=== PATIENT | female | born 1935 | race Caucasian/White ===

== ENCOUNTER 2018-04-01 08:08 | Emergency (ER) | payer MEDICARE ==
[2018-04-01] MEDS ORDERED: Adacel (T-DAP) 0.5 ML VIAL ONE (08:55)
[2018-04-01] MEDS ORDERED: diphenhydrAMINE 25 MG CAP ONE (08:55)
== END 2018-04-01 09:50 | disposition home or self-care (01) ==
LOC: ERS 08:08
DX: S00.81XA Abrasion of other part of head, initial encounter (principal); S20.319A Abrasion of unspecified front wall of thorax, initial encounter; S30.810A Abrasion of lower back and pelvis, initial encounter; Z23 Encounter for immunization; Z79.899 Other long term (current) drug therapy; X58.XXXA Exposure to other specified factors, initial encounter
CPT/HCPCS: 90471; 90715

== ENCOUNTER 2019-01-16 08:46 | Observation (INO) | payer MEDICARE ==
[2019-01-16 09:52] LABS: ALT (SGPT) 9 U/L (8-55); AST (SGOT) 16 U/L (5-34); Albumin 4.3 g/dL (3.4-4.8); Alkaline Phosphatase 52 U/L (40-150); Anion Gap 11 mmol/L (10-20); BUN (Urea Nitrogen) 17 mg/dL (9.8-20.1); Bilirubin, Total 1.1 mg/dL (0.2-1.2); Calc. Creatinine Clearance 0 mL/min (70-130); Calcium 9.9 mg/dL (7.8-10.44); Carbon Dioxide 25 mmol/L (23-31); Chloride 107 mmol/L (98-107); Estimated GFR-MDRD 62; Globulin 2.7 g/dL (2.4-3.5); Glucose 98 mg/dL (83-110); Sodium 139 mmol/L (136-145)
[2019-01-16 09:56] LABS: #Eosinphils 0.1 thou/uL (0.0-0.7); #Lymphocytes 1.7 thou/uL (1.20-3.40); #Monocytes 0.5 thou/uL (0.11-0.59); #Neutrophils 4.1 thou/uL (1.40-6.50); %Basophils 0.3 % (0.0-1.0); %Eosinophils 1.6 % (0.0-10.0); %Lymphocytes 26.1 % (21.0-51.0); %Monocytes 7.7 % (0.0-10.0); %Neutrophils 64.3 % (42.0-75.0); Hemoglobin 13.4 g/dL (12.0-16.0); MDiff Complete? YES; Mean Corpuscular HGB CONC 32.8 g/dL (32.0-36.0); Mean Corpuscular Volume 88.6 fL (78.0-98.0); Mean Platelet Volume 9.5 fL (7.4-10.4); Ovalocytes SLIGHT = 2-5 cells (100X) (0-1/hpf); Platelet Count 110 thou/uL (130-400); Platelet Morphology Comment Appears Decreased; Polychromasia SLIGHT = 2-3 cells (100X) (0-2/hpf); RBC Distribution Width 12.5 % (11.5-14.5); Red Blood Cell (RBC) Count 4.61 mill/uL (4.20-5.40); White Blood Cell (WBC) Count 6.4 thou/uL (4.8-10.8)
[2019-01-16] MEDS ORDERED: Ondansetron PF 4 MG/2 ML Vial ONE (10:21)
[2019-01-16] MEDS ORDERED: Morphine 4 MG/ML VIAL ONE (10:21)
[2019-01-16] MEDS ORDERED: Nitroglycerin 2% Ointment 1 INCH/1 GM Packet ONE (11:27)
[2019-01-16] MEDS ORDERED: Aspirin Chewable 81 MG TAB ONE (11:27)
[2019-01-16 12:21] LABS: Acetaminophen Less than 6.0 mcg/mL (10.0-30.0); Alcohol Less than 10 mg/dL (Less than 10); Salicylate Less than 8.0 mg/dL (15.0-30.0)
[2019-01-16 13:05] LABS: Bilirubin Negative (Negative); Blood, Urine Negative (Negative); Clarity CLEAR (Clear); Glucose, Urine (Dipstick) Negative (Negative); Leukocyte Negative (Negative); Nitrite Negative (Negative); Protein, Urine (Dipstick) Negative (Neg-Trace); Urobilinogen 0.2 mg/dL (0.2-1.0)
[2019-01-16 13:15] LABS: Amphetamine Not Detected (NotDetected); Barbiturates Screen Not Detected (NotDetected); Benzodiazepine Screen Not Detected (NotDetected); Cocaine Metabolite Screen Not Detected (NotDetected); Medtox Control Line Valid? VALID (VALID); Medtox Reader # READER 1; Methadone Not Detected (NotDetected); Methamphetamine Not Detected (NotDetected); Opiate Screen Not Detected (NotDetected); Oxycodone Screen Not Detected (NotDetected); Phencyclidine (PCP) Not Detected (NotDetected); THC/Cannabinoid Screen Not Detected (NotDetected); Tricyclic Screen Not Detected (NotDetected)
[2019-01-16] MEDS ORDERED: hydrALAZINE 20 MG/ML VIAL SLOW IVP PRN (13:31)
[2019-01-16 15:11] VITALS: BMI 27.6
[2019-01-17] MEDS: Acetaminophen 325 MG TAB PO PRN ×2 (05:45→22:09)
[2019-01-17 06:57] LABS: #Eosinphils 0.1 thou/uL (0.0-0.7); #Lymphocytes 1.7 thou/uL (1.20-3.40); #Monocytes 0.6 thou/uL (0.11-0.59); %Basophils 0.6 % (0.0-1.0); %Eosinophils 1.5 % (0.0-10.0); %Lymphocytes 31.2 % (21.0-51.0); %Monocytes 10.4 % (0.0-10.0); %Neutrophils 56.3 % (42.0-75.0); Hemoglobin 12.4 g/dL (12.0-16.0); Mean Corpuscular HGB CONC 32.2 g/dL (32.0-36.0); Mean Corpuscular Volume 89.9 fL (78.0-98.0); Mean Platelet Volume 9.7 fL (7.4-10.4); Platelet Count 90 thou/uL (130-400); RBC Distribution Width 12.5 % (11.5-14.5); Red Blood Cell (RBC) Count 4.29 mill/uL (4.20-5.40); White Blood Cell (WBC) Count 5.3 thou/uL (4.8-10.8)
[2019-01-17 07:17] LABS: Anion Gap 9 mmol/L (10-20); BUN (Urea Nitrogen) 16 mg/dL (9.8-20.1); Calc. Creatinine Clearance 59 mL/min (70-130); Calcium 9.4 mg/dL (7.8-10.44); Carbon Dioxide 29 mmol/L (23-31); Chloride 105 mmol/L (98-107); Estimated GFR-MDRD 59; Glucose 93 mg/dL (83-110); Potassium 4.4 mmol/L (3.5-5.1); Sodium 139 mmol/L (136-145)
[2019-01-17] MEDS ORDERED: Lisinopril 5 MG TAB PO SCH ×2 (09:00→18:45)
[2019-01-17 10:38] LABS: Troponin I Less than 0.010 ng/mL (< 0.028)
--- NOTE | 2019-01-17 12:53 | HP ---
CHIEF COMPLAINT: Infection on the leg. HISTORY OF PRESENT ILLNESS: This patient is an 83-year-old female who presented via the emergency department. The patient's primary concern was a wound on her right leg. The ER physician got history from the patient that she had seen her PCP and had been on antibiotics, but had not improved. By my history, the patient reported that she was helping her son, who has some sort of handicap, move his belongings to her home and a bug bit her on the leg. She stated that she was never able to see the bug, but she could hear the bug. On my exam, the patient had a great deal of difficulty giving any detailed history and was very difficult to keep on task regarding her history. The only thing I could get for certain is that it was the reason that she had presented to the emergency department. REVIEW OF SYSTEMS: As best I could obtain, it was unremarkable otherwise. PAST MEDICAL HISTORY: Difficult to obtain as well. However, looking back to her records in the electronic record system, she does appear to have a history of schizophrenia, although she denied any other specific medical history. PAST SURGICAL HISTORY: She does have some history surgically the hysterectomy. FAMILY HISTORY: Nothing significant or at least obtained from conversation with the patient. ALLERGIES: PENICILLINS. HOME MEDICATIONS: Apparently, she takes some qofs-ogd-kairayq Claritin from time to time, but no prescription medications. PHYSICAL EXAMINATION: VITAL SIGNS: On arrival; BP was 194/84, pulse 72, respirations 18, temperature was 97 8.8, O2 saturation was 97% on room air. At the time of discharge in the ER, BP 149/78, pulse 57, respirations 18, temperature 98.7, O2 saturation was 98%. GENERAL APPEARANCE: The patient appeared in no distress. She was quite lively in fact. HEENT: PERRL. No OP lesions. NECK: Supple and symmetric. HEART: Had regular rate and rhythm with a split S2. LUNGS: Clear to auscultation bilaterally with good chest wall expansion and air exchange. Extremities: There is a lesion on the right lower leg with approximately 1 cm black scab at the center surrounded by about 2 cm radius halo of faint erythema. There is also a smaller similar lesion on the lateral mid calf on the left. There are multiple varicose veins noted and there is a surgical incision at the medial proximal left calf where the patient appears to have had a vein stripping done previously. NEURO: The patient moves all extremities spontaneously and tends to be borderline hypomanic. 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 She also inquired about the origin of my name and when told it dated back to the s, she stated that she loves those people and she hears from them all the time. When I initially walked into the room, the patient had her eyes closed and was talking as of having a conversation. When I made by presence known, she said " Oh, I was just talking to my preacher, you're my preacher aren't you?" IMAGING: EKG shows an incomplete left bundle-branch block with sinus bradycardia. LABORATORY DATA: White count 6.4, hemoglobin 13.4, platelets 110. Sedimentation rate was 8. Chemistries normal. CRP was 0.52. TSH 1.2. Urinalysis is negative. Drug screen positive for salicylates and acetaminophen. EMERGENCY ROOM COURSE: The patient received IV vancomycin, Zofran, morphine and Nitro-Bid as well as aspirin. IMPRESSION AND PLAN: 1. The patient appears to possibly be manic with flight of ideas and some potential delusions of grandeur, completely unclear what this patient's baseline mental status is or whether she has underlying dementia. She had no family available. I attempted to call the number in the records and it was a non-working number. The other number in the record was attempted and only got a voicemail. Discussed the case with the ED provider. Sound like [facility] might need to be involved. We will place the patient in observation or now and address her blood pressure and watch status stable. Consult [facility] for acute psychoses. 2. Stasis ulcer of the right lower extremity. Completely unclear whether the patient has actually been treated for this or not, it is certainly possible; if it is a stasis ulcer and is not going to improve with antibiotics. She had a basically normal sedimentation rate and CRP. She has a normal white count with no fever. We will ask the wound care team to evaluate her. 3. Hypertension. Again, no real baseline to go by. We will start 5 mg of lisinopril and give her p.r.n. Hydralazine. Job ID: [id number] EN
--- NOTE | 2019-01-17 20:09 | PRG ---
DATE OF SERVICE: 01/17/2019 SUBJECTIVE: Ms. Bobo is an 83-year-old female with past medical history significant for schizophrenia, who presented to the hospital with complaints of nonhealing right lower extremity ulcer. Upon evaluation of the ulcer yesterday, there appeared to be no overt infection, and Wound Care has since evaluated the patient and placed proper dressing. Incidental finding of hypertension was noted in the ER, and the patient has been initiated on antihypertensive therapy with lisinopril. The patient has remained somewhat manic today with flight of thoughts. She continues to believe that multiple people are coming in the room to speak with her, including a twin of myself. She remains pleasant to me and conversive. She continues to complain of some mild right lower extremity pain in relation to her ulcer, but otherwise no complaints. No chest pain. No shortness of breath. No physical complaints at this time. OBJECTIVE: VITAL SIGNS: Blood pressure 152/70, pulse 62, O2 saturation is 96% on room air. The patient is afebrile. GENERAL: The patient is a well-appearing elderly female. She is in no acute distress. HEENT: Head is atraumatic and normocephalic. Mucous membranes are moist. NECK: No lymphadenopathy. No carotid bruits. CV: S1 and S2. Regular rate and rhythm. No appreciable murmurs, rubs, or gallops. LUNGS: Regular respiratory rate and pattern. Clear to auscultation bilaterally. ABDOMEN: Positive bowel sounds. Soft, nontender. No masses. NEUROLOGIC: The patient is nonfocal. Cranial nerves 2 through 12 are intact. EXTREMITIES: Right lower leg does show a small 1 cm wound that has been properly dressed by Wound Care with a small approximately 1-2 cm halo of erythema surrounding it. The patient does have notable varicosities as well. LABORATORY DATA: White blood cell count 5.3, hemoglobin 12.4, hematocrit 38.6. ESR is 8. Sodium 139, potassium 4.4, chloride 105, BUN 16, creatinine 0.91. Troponin was negative. ASSESSMENT: 1. Venous stasis ulcer of right lower extremity, not overtly infected in the setting of known varicosities and vein stripping in the past. 2. Schizophrenia, previously on olanzapine, with manic behavior and active visual hallucinations in this hospitalization. 3. Hypertension, newly diagnosed. 4. Premature ventricular contractions noted on echo, asymptomatic, normal EF. PLAN: We will increase lisinopril to 10 mg daily. May consider p.r.n. clonidine at discharge for intermittent elevated blood pressure readings. We will start prophylactic antibiotic coverage with doxycycline 100 mg p.o. b.i.d. I have made multiple attempts at this point to reach family members. My phone calls have not been returned. The patient resides at [place]. The patient will need [facility] evaluation prior to discharge to ensure safe discharge at this time given the patient's continued visual hallucinations and manic type speech behavior. The patient is medically stable at this time. The care of this patient has been discussed with Dr. Krishna who agrees with the above. Job ID: [id number]
[2019-01-17] MEDS ORDERED: Enoxaparin Sodium 40 MG/0.4 ML SYRINGE SC SCH (21:00)
[2019-01-17] MEDS: Doxycycline 100 MG CAP PO SCH (22:07)
[2019-01-18 07:44] VITALS: BP 126/60; TEMP 97.9
[2019-01-18] MEDS: Doxycycline 100 MG CAP PO SCH (08:15)
[2019-01-18] MEDS ORDERED: Lisinopril 10 MG TAB PO SCH (09:00)
--- NOTE | 2019-01-19 11:34 | DIS ---
DATE OF ADMISSION: 01/16/2019 DATE OF DISCHARGE: 01/18/2019 This is Denisse Casper PA-C dictating a report for Hitesh Krishna MD. CHIEF COMPLAINT: On admission: Right lower extremity pain. DISCHARGE DIAGNOSES: 1. Venous stasis ulcer of the right lower extremity, not overtly infected, healing well, in the setting of known varicosities and vein stripping in the past. 2. Schizophrenia, previously on olanzapine, with manic behavior and active visual hallucinations in this hospitalization, cleared by [facility] for discharge home and not a danger to herself or others. 3. Hypertension, newly diagnosed and controlled on lisinopril. 4. Premature ventricular contractions noted on echo, asymptomatic, normal EF. BRIEF HOSPITAL COURSE: The patient is an 83-year-old female with past medical history significant for schizophrenia, who presented to the hospital with complaints of nonhealing right lower extremity ulcer. Upon evaluation of the ulcer, there appeared to be no overt infection, and Wound Care has since evaluated the patient and placed proper dressing. In the ER, there was an incidental finding of hypertension noted, and the patient was admitted to the hospital for further control of her blood pressure. She was started on antihypertensive therapy with lisinopril. The patient exhibited somewhat manic behavior at the time of her admission with flight of ideas. She continued to have behavior consistent with visual hallucinations throughout her stay. [facility] was consulted, and deemed the patient as safe discharge to home and she was not a danger to herself or others. She does live independently at [facility], with her son nearby. As mentioned, the patient was hypertensive, and she was started on lisinopril with good response in her blood pressure. DISCHARGE DISPOSITION: Home to [facility]. DISCHARGE CONDITION: Stable. DISCHARGE FOLLOWUP AND INSTRUCTION: The patient was given a prophylactic course of doxycycline 100 mg b.i.d. to complete a 7-day course. She will have home health and home wound care at home. She will continue to follow up with her primary care physician who is Dr. Vaca. The patient and her family were also given resources from [facility] for further evaluation and medical management of the patient's schizophrenia. Care of this patient was discussed with Dr. Krishna who agreed with the discharge as outlined above. Job ID: [id number]
== END 2019-01-18 09:47 | disposition home or self-care (01) ==
LOC: ERS 08:46 → ERHOLD 10:02 → 2SW 15:02
PROVIDERS: ADMIT Internal Medicine; ATTEND Internal Medicine
DX: I87.2 Venous insufficiency (chronic) (peripheral) (principal); F20.9 Schizophrenia, unspecified; I10 Essential (primary) hypertension; I49.3 Ventricular premature depolarization; Z88.0 Allergy status to penicillin
CPT/HCPCS: 80048; 80306; 80307; 81003; 83605; 84484; 85025; 85652; 86140; 87040; 93005; 93306; 96365; 96372; 96375; 97139; 99284; G0378 ×2; 36415; 80053; 84443; J1650; J2270; J2405; J3370

== ENCOUNTER 2019-02-26 07:55 | Emergency (ER) | payer MEDICARE ==
[2019-02-26] MEDS ORDERED: Ondansetron PF 4 MG/2 ML Vial ONE (08:59)
[2019-02-26 09:04] LABS: Hemoglobin 13.5 g/dL (12.0-16.0); Mean Corpuscular HGB CONC 31.6 g/dL (32.0-36.0); Mean Corpuscular Hemoglobin 27.8 pg (27.0-31.0); Mean Corpuscular Volume 88.2 fL (78.0-98.0); RBC Distribution Width 12.4 % (11.5-14.5); Red Blood Cell (RBC) Count 4.84 mill/uL (4.20-5.40); White Blood Cell (WBC) Count 6.6 thou/uL (4.8-10.8)
[2019-02-26 09:22] LABS: ALT (SGPT) 10 U/L (8-55); AST (SGOT) 19 U/L (5-34); Albumin 4.2 g/dL (3.4-4.8); Alkaline Phosphatase 53 U/L (40-150); Anion Gap 11 mmol/L (10-20); BUN (Urea Nitrogen) 16 mg/dL (9.8-20.1); Bilirubin, Total 1.1 mg/dL (0.2-1.2); CK (CPK) 143 U/L (29-168); Calc. Creatinine Clearance 0 mL/min (70-130); Calcium 9.6 mg/dL (7.8-10.44); Carbon Dioxide 26 mmol/L (23-31); Chloride 106 mmol/L (98-107); Estimated GFR-MDRD 66; Globulin 2.7 g/dL (2.4-3.5); Glucose 112 mg/dL (83-110); Potassium 3.9 mmol/L (3.5-5.1); Protein, Total 6.9 g/dL (6.0-8.3); Sodium 139 mmol/L (136-145)
[2019-02-26 09:29] LABS: #Lymphocytes 0.9 thou/uL (1.20-3.40); #Monocytes 0.3 thou/uL (0.11-0.59); #Neutrophils 5.4 thou/uL (1.40-6.50); %Basophils 0.1 % (0.0-1.0); %Eosinophils 0.3 % (0.0-10.0); %Lymphocytes 13.8 % (21.0-51.0); %Neutrophils 80.8 % (42.0-75.0); Burr Cells SLIGHT = 2-5 cells (100X) (0-1/hpf); MDiff Complete? YES; Mean Platelet Volume 9.2 fL (7.4-10.4); Platelet Count 104 thou/uL (130-400); Platelet Morphology Comment Appears Decreased
[2019-02-26 10:49] LABS: Bilirubin Negative (Negative); Blood, Urine Negative (Negative); Glucose, Urine (Dipstick) Negative (Negative); Leukocyte Negative (Negative); Nitrite Negative (Negative); Protein, Urine (Dipstick) 30 mg/dL (Neg-Trace); Urobilinogen 0.2 mg/dL (Less than 2)
[2019-02-26 10:50] LABS: Clarity Clear (Clear)
[2019-02-26 11:02] LABS: Bacteria/HPF None Seen HPF (None Seen); RBC/HPF None Seen HPF (0-3); WBC/HPF 0-3 HPF (0-3)
[2019-02-26] MEDS ORDERED: traMADol HCl 50 MG TAB ONE (11:43)
[2019-02-26] MEDS ORDERED: Bacitracin 1 PK ONE (11:53)
== END 2019-02-26 07:56 ==
LOC: ERS 07:55
DX: S80.921A Unspecified superficial injury of right lower leg, initial encounter (principal); R11.2 Nausea with vomiting, unspecified
CPT/HCPCS: 80053; 81003; 81015; 82550; 84484; 85025; 87086; 93005; 96361; 96374; J2405

== ENCOUNTER 2019-04-24 12:30 | Inpatient (IN) | payer MEDICARE ==
[2019-04-24] MEDS ORDERED: Lorazepam 2 MG/ML VIAL ONE (12:51)
[2019-04-24] MEDS ORDERED: Ondansetron PF 4 MG/2 ML Vial ONE ×3 (12:53→15:05)
[2019-04-24 13:09] LABS: #Lymphocytes 1.7 thou/uL (1.20-3.40); #Monocytes 0.5 thou/uL (0.11-0.59); %Basophils 0.4 % (0.0-1.0); %Eosinophils 0.5 % (0.0-10.0); %Lymphocytes 23.1 % (21.0-51.0); %Monocytes 7.4 % (0.0-10.0); %Neutrophils 68.6 % (42.0-75.0); Hemoglobin 13.2 g/dL (12.0-16.0); Mean Corpuscular HGB CONC 32.5 g/dL (32.0-36.0); Mean Corpuscular Hemoglobin 28.8 pg (27.0-31.0); Mean Corpuscular Volume 88.5 fL (78.0-98.0); Mean Platelet Volume 9.6 fL (7.4-10.4); Platelet Count 105 thou/uL (130-400); RBC Distribution Width 12.5 % (11.5-14.5); Red Blood Cell (RBC) Count 4.58 mill/uL (4.20-5.40); White Blood Cell (WBC) Count 7.3 thou/uL (4.8-10.8)
[2019-04-24 13:32] LABS: ALT (SGPT) 12 U/L (8-55); AST (SGOT) 20 U/L (5-34); Albumin 4.3 g/dL (3.4-4.8); Alkaline Phosphatase 52 U/L (40-150); Anion Gap 11 mmol/L (10-20); BUN (Urea Nitrogen) 13 mg/dL (9.8-20.1); Calc. Creatinine Clearance 0 mL/min (70-130); Calcium 9.6 mg/dL (7.8-10.44); Carbon Dioxide 26 mmol/L (23-31); Chloride 103 mmol/L (98-107); Estimated GFR-MDRD 63; Globulin 2.9 g/dL (2.4-3.5); Glucose 107 mg/dL (83-110); Protein, Total 7.2 g/dL (6.0-8.3); Sodium 136 mmol/L (136-145)
[2019-04-24] MEDS ORDERED: Atropine Sulfate 1 mg/10 ml Syringe ONE (13:50)
[2019-04-24] MEDS ORDERED: Atropine Sulfate 1 mg/1 ml Vial IVP PRN (16:34)
[2019-04-24] MEDS ORDERED: DOBUTamine 500 mg/250 ml 250 ML IVPB SCH (16:45)
[2019-04-24] MEDS ORDERED: Nitroglycerin 50 MG/250 ML BOT 250 ML IVPB SCH (17:00)
[2019-04-24] MEDS ORDERED: Nitroglycerin 50 MG/250 ML BOT 250 ML ONE (17:00)
[2019-04-24] MEDS: Ondansetron PF 4 MG/2 ML Vial IVP PRN (17:16)
[2019-04-24] MEDS ORDERED: hydrOXYzine 25 MG TAB PO PRN (17:55)
[2019-04-24] MEDS ORDERED: Temazepam 15 MG CAP PO PRN (17:55)
[2019-04-24] MEDS ORDERED: Morphine 4 MG/ML VIAL SLOW IVP PRN (17:55)
[2019-04-24] MEDS ORDERED: Acetaminophen 500 MG TAB PO PRN (17:55)
[2019-04-24] MEDS ORDERED: HYDROcodone/Acetaminophen 5/325 mg Tablet PO PRN (17:55)
[2019-04-24 18:23] LABS: Troponin I Less than 0.010 ng/mL (< 0.028)
--- NOTE | 2019-04-24 21:04 | CON ---
DATE OF CONSULTATION: HISTORY OF PRESENT ILLNESS: Christal Bobo is an 83-year-old white female, who had a syncopal episode today at [facility]. She states that she passed out onto her couch. In the emergency room here, she has had 3 syncopal episodes with pauses of 3 and 6 seconds. She denies any chest discomfort or shortness of breath. She does complain of nausea. PAST MEDICAL HISTORY: Remarkable for history of hypertension, but apparently not on any medications at this time. She has a chronic ulcer of her right medial ankle which has been present since January 2019 when she apparently was bitten by some type of bug. She states that she has dressing changes of this on a routine basis. MEDICATION: Unknown-when last discharged, she was placed on lisinopril 10 mg daily. ALLERGIES: PENICILLIN. PAST SURGICAL HISTORY: Cholecystectomy. SOCIAL HISTORY: She does not smoke or drink. She lives at [facility]. REVIEW OF SYSTEMS: Otherwise unremarkable except for urinary frequency. PHYSICAL EXAMINATION: VITAL SIGNS: Blood pressure 170/80, pulse of 58, sinus rhythm. HEENT: PERRL. NECK: Supple. CHEST: Clear. CARDIAC: S1 and S2 are normal without any S3, S4, or murmurs. ABDOMEN: Normal bowel sounds without tenderness. EXTREMITIES: Revealed no clubbing, cyanosis, or edema. She does have an approximately 2 cm diameter ulcer over her right medial malleolus. This does not appear to be grossly infected. There is no surrounding cellulitis. NEUROLOGICAL: Grossly intact. LABORATORY DATA: EKG reveals normal sinus rhythm with left bundle-branch block. She had left bundle-branch block on EKG when she was hospitalized here in January, but not on EKG in 2011. Echocardiogram in January 2019 revealed ejection fraction of 50% to 55% with mild left atrial dilatation. Mild mitral regurgitation, mild to moderate tricuspid regurgitation and mildly elevated pulmonary pressures. CBC is unremarkable with white count 7300. Sodium 136, potassium 4.0, chloride 103, carbon dioxide 26, BUN 13, creatinine 0.86. Troponin I is less than 0.010. IMPRESSION: 1. Syncope secondary to sinus arrest. 2. Hypertension, questionably if on lisinopril. 3. History of schizophrenia. 4. History of venous insufficiency with chronic right leg ulcer. 5. LBBB since at least 01/2019. RECOMMENDATIONS: She will be placed on low-dose dobutamine at the present time and cardiac enzymes will be obtained. It was recommended that a permanent pacemaker will be placed. Risks of this were discussed with the patient including , infection, bleeding, blood clot formation, reoperation for lead dislodgement, pneumothorax with chest tube placement, tamponade with surgical drainage. She understands and agrees to proceed. No family is present at this time. She also will need further evaluation of her venous disease. A referral was made to our office in February 2018 for evaluation of lower extremity edema and venous stasis. However, she did not make an appointment to be evaluated. Lower extremity venous duplex will need to be performed as an outpatient for further evaluation of this. Job ID: [id number] [facility]
[2019-04-24 21:36] LABS: Troponin I Less than 0.010 ng/mL (< 0.028)
--- NOTE | 2019-04-25 01:29 | HP ---
CHIEF COMPLAINT: Weakness and dizziness. The patient was presented to the emergency department, found to have 2 pauses with baseline left bundle-branch block on EKG. During these pauses of cardiac rhythm, the patient was symptomatic. Subsequently, had nausea and vomiting afterward, was given atropine in the emergency department and Dr. Donahue, Cardiology, was consulted. The patient with compensatory hypertension, heart rate stabilized into the 50s to 60s. The patient was transferred to the ICU for close monitoring given 2 pauses in the emergency department. The patient's heart rate stabilized in the 60s. Other than when the patient was retching and bradyed down with vasovagal response, however, quickly came back. Blood pressure was titrated with nitroglycerin drip. PAST MEDICAL/SOCIAL/SURGICAL HISTORY: Includes history of cellulitis, but currently non-pressure ulcer of right rose secondary to venous stasis dermatitis present on admission, history of hypertension, hyperlipidemia, history of schizophrenia. The patient currently lives alone. No tobacco or current alcohol use. Under home health care for wound. The patient is estranged from her , but he routinely visits doctor's appointments with her. REVIEW OF SYSTEMS: At bedside: Denies fevers or chills. No cough. Positive chest pressure, shortness of breath, and nausea and vomiting with weakness and fatigue as above. No dysuria. Positive lower extremity edema. Positive varicose veins. Positive ulceration to lower extremity. On review of vital signs at the time of leaving the emergency department, blood pressure 188/74, pulse of 62, respiratory rate of 17, oxygen saturation of 100% on 3 L nasal cannula, temperature of 98.5. Review of blood work, white blood count 7.3, hemoglobin 13.2, platelet count 105. Troponin x2 less than 0.01. Glucose of 98, sodium of 134, potassium of 4.0, CO2 of 26, creatinine of 0.86, AST of 20, ALT of 12. Albumin 4.3. HOME MEDICATIONS: Include lisinopril 20 mg. The patient has Santyl ointment for wound care purposes, completed doxycycline treatment prior for cellulitis, is no longer currently on medication. PHYSICAL EXAMINATION: GENERAL: The patient is alert and some nauseous still at bedside ICU. HEENT: Head is normocephalic and atraumatic otherwise. Nasal cannula in place. Oral mucosa is moist. NECK: Supple. HEART: Slightly bradycardic at the time of exam. No murmurs auscultated. LUNGS: Clear to auscultation bilaterally. No rubs or wheezes. ABDOMEN: Soft, nontender. Positive bowel sounds throughout. EXTREMITIES: Lower extremities with varicose veins bilaterally. Positive trace pitting edema. Right lower extremity, medial surface with non-pressure ulcer that is slightly improved from baseline when last seen in clinic. INTEGUMENTARY: The patient is covered from head-to-toe with areas where reachable excoriations from psychogenic pruritus. ASSESSMENT AND PLAN: Symptomatic bradycardia, borderline personality disorder, _and histrionic personality disorder, paranoid schizophrenia, non-pressure ulcer of lower extremity. We will take cardiology's lead to undergo pacemaker tomorrow morning. The patient is on nitroglycerin drip as well as dobutamine with p.r.n. atropine for any symptoms of bradycardia. Wrote for home lisinopril, covering with pain medications p.r.n. as well as Atarax for any additional itching for skin, p.r.n. Restoril for this evening to help keep the patient calm. The patient has never been compliant with any medications for psychiatric purposes and has refused to go to Cardiology in the last year, 2 times on outpatient basis. I will consult wound care team to continue home health wound care regarding non-pressure ulcer. Echocardiogram pending and the patient is n.p.o. after midnight for likely pacemaker placement. We will continue to follow along. Job ID: [id number] [facility]
[2019-04-25 05:05] LABS: #Lymphocytes 1.8 thou/uL (1.20-3.40); #Monocytes 0.8 thou/uL (0.11-0.59); #Neutrophils 5.7 thou/uL (1.40-6.50); %Basophils 0.3 % (0.0-1.0); %Eosinophils 0.4 % (0.0-10.0); %Lymphocytes 21.7 % (21.0-51.0); %Monocytes 9.5 % (0.0-10.0); %Neutrophils 68.1 % (42.0-75.0); Mean Corpuscular Hemoglobin 29.4 pg (27.0-31.0); Mean Platelet Volume 9.6 fL (7.4-10.4); Platelet Count 92 thou/uL (130-400); RBC Distribution Width 12.5 % (11.5-14.5); Red Blood Cell (RBC) Count 4.09 mill/uL (4.20-5.40); White Blood Cell (WBC) Count 8.4 thou/uL (4.8-10.8)
[2019-04-25 05:18] LABS: Anion Gap 10 mmol/L (10-20); BUN (Urea Nitrogen) 10 mg/dL (9.8-20.1); Calc. Creatinine Clearance 61 mL/min (70-130); Calcium 8.7 mg/dL (7.8-10.44); Carbon Dioxide 23 mmol/L (23-31); Chloride 109 mmol/L (98-107); Estimated GFR-MDRD 63; Glucose 107 mg/dL (83-110); Potassium 3.7 mmol/L (3.5-5.1); Sodium 138 mmol/L (136-145)
[2019-04-25] MEDS ORDERED: Sodium Chloride 0.9% 1,000 ML IV SCH (06:00)
[2019-04-25 08:02] LABS: Cardiac Risk 2.7 (Less than 4.5)
[2019-04-25] MEDS ORDERED: Levofloxacin 500 mg/D5W 100 ml Premix Bag ONE (08:03)
[2019-04-25] MEDS ORDERED: Clindamycin/D5W 900 mg/50 ml Premix Bag ONE (08:03)
[2019-04-25] MEDS ORDERED: Midazolam HCl 2 mg/2 ml Vial ONE (09:15)
[2019-04-25] MEDS ORDERED: Fentanyl 100 MCG/2 ML VIAL ONE (09:15)
[2019-04-25] MEDS ORDERED: Lidocaine 1% (PF) 30 ML VIAL ONE (09:23)
[2019-04-25] MEDS ORDERED: Vancomycin HCl 1 GM in Premix Bag 1 BAG IVPB SCH (10:00)
--- NOTE | 2019-04-25 10:58 | RAD ---
XR Chest 1 View Portable History: Post cardiac device placement Comparison: Radiograph July 05, 2012 Findings: Dual-lead pacer is in place. No pneumothorax. Heart size mildly enlarged. Mild pulmonary ve nous congestion. Impression: Uncomplicated placement dual-lead pacer.
--- NOTE | 2019-04-25 11:18 | PRG ---
DATE OF SERVICE: 04/25/2019 INTERVAL HISTORY: The patient is doing fine from respiratory standpoint. Breathing comfortably. No complaints of chest discomfort, nausea, vomiting, fevers, or chills. She did have one episode of sinus arrest during retching episode late last night. Since she got a dose of Zofran, she had no additional events. OBJECTIVE: VITAL SIGNS: Afebrile, pulse 66, blood pressure 132/54, respirations 16, saturation 99% on room air. GENERAL: The patient is awake and alert, in no apparent distress. LUNGS: Good air entry with no prolonged expiratory phase or wheezing. HEART: Normal rate and regular. ABDOMEN: Soft, nontender, nondistended. Bowel sounds are positive. MUSCULOSKELETAL: No cyanosis or clubbing. No pitting in the bilateral lower extremities. NEUROLOGIC: Grossly nonfocal. LABORATORY DATA: CBC is unremarkable. Chemistries are also unremarkable. Troponins were negative x3. IMAGING STUDIES: Echocardiogram demonstrates 55% to 60% ejection fraction. There is some diastolic dysfunction. Otherwise, there is some icro-yl-rwevorud mitral regurgitation present. PHYSICIANS AND SURGEONS: 1. Syncope. 2. Sinus arrest. 3. Left bundle-branch block, chronic. DISCUSSION AND PLAN: The patient is going down for pacemaker this morning. Once this is in place, she will be able to transition to the telemetry unit. At that point, she will have no further requirements for inpatient Pulmonary or Critical Care opinion, and I will sign off. Please call with additional questions or concerns through time. Job ID: [id number]
[2019-04-25] MEDS: Lisinopril 20 MG TAB PO SCH (11:29)
[2019-04-25] MEDS ORDERED: traMADol HCl 50 MG TAB PO PRN (12:40)
--- NOTE | 2019-04-25 13:14 | CON ---
DATE OF CONSULTATION: 04/24/2019 SERVICE: Pulmonary Medicine. REASON FOR CONSULTATION: ICU patient. HISTORY OF PRESENT ILLNESS: The patient is an 83-year-old white female with past medical history significant for essentially nothing. She presents to the hospital with complaints of passing out. She had 2 of these episodes on telemetry. During these episodes, she went into basically complete sinus arrest for a period of time before she spontaneously returned to normal sinus rhythm. During these episodes , she gets lightheaded and confused. She completely goes obtunded. Then, her heart kicks back and then she wakes back up and then start. She has never had these types of events occur before. PAST MEDICAL HISTORY: 1. Chronic venous stasis. 2. Hypertension. 3. Dyslipidemia. 4. Schizophrenia. PAST SURGICAL HISTORY: None. ALLERGIES: PENICILLIN. MEDICATIONS: List of her inpatient and outpatient medications was reviewed. No specific updates were made at this time. FAMILY HISTORY: Noncontributory. SOCIAL HISTORY: Negative for current alcohol, tobacco, or illicit drug use. She currently lives at home. She has no exposure to chemicals, dust, asbestos, or tuberculosis. REVIEW OF SYSTEMS: General; head, ears, eyes, nose, throat; cardiovascular; respiratory; GI; ; musculoskeletal; neurologic; and skin are negative except as mentioned in the HPI. PHYSICAL EXAMINATION: VITAL SIGNS: Afebrile, pulse 68, blood pressure 117/42, respirations 14, and saturation 99% on room air. GENERAL: The patient is awake and alert, in no apparent distress. LUNGS: Decent air entry. There is no prolonged expiratory phase or wheezing present. HEART: Normal rate and regular. ABDOMEN: Soft, nontender, and nondistended. Bowel sounds are positive. MUSCULOSKELETAL: No cyanosis or clubbing. There is no pitting in the bilateral lower extremities. NEUROLOGIC: Grossly nonfocal. LABORATORY DATA: WBC 7.3, hemoglobin 13.2, platelets 105,000. Basic metabolic profile and liver function studies are otherwise unremarkable. Troponins negative x2. ASSESSMENT: 1. Syncope. 2. Sinus arrest. 3. Schizophrenia. 4. History of left bundle branch block. DISCUSSION AND PLAN: The patient is doing fine at this point from both cardiovascular and respiratory standpoint. At this point, since she is not on any beta blockers and has no significant electrolyte abnormalities, Cardiology is recommending permanent pacemaker placement. She will be monitored on telemetry in the ICU until this is secured. At that time, she will be stable for transition out of the ICU to the telemetry unit. Critical Care will follow along so long as she remains in this location. 70 minutes have been devoted to this patient in various activities. I personally reviewed all imaging studies and laboratory data noted within this document. For fifty percent of this time, I was interacting with the patient at the bedside or coordinating care with the care team. For the remainder of the time I was immediately available to the patient in the hospital unit. Job ID: [id number] MTDD
[2019-04-25] MEDS: Ondansetron PF 4 MG/2 ML Vial IVP PRN (14:17)
--- NOTE | 2019-04-25 14:22 | PRG ---
DATE OF SERVICE: 04/25/2019 HISTORY OF PRESENT ILLNESS: The patient is status post pacemaker, appears to be doing well, somewhat nauseated in the postoperative period, but no other acute complaints. Did meet the patient's son for the 1st time at bedside. Was unaware that he lived so close to town, given my card, will be hopefully working with him on discharge planning and followup to have the patient follow through therapies as prior Cardiology referrals the patient was lost to follow up on in the last 18 months. Wound Care was consulted and is working with the patient. LABORATORY DATA: Review of lab work this morning, white blood cell count of 8.4, hemoglobin of 12.0, sodium of 138, potassium of 3.7, creatinine of 0.8. Cholesterol profile; total cholesterol 175, triglycerides 57, and HDL 64. Echocardiogram, ejection fraction of 55% to 60%. Diastolic dysfunction is suggested based on the sclerosis to aortic valve. PHYSICAL EXAMINATION: VITAL SIGNS: Temperature of 98.3, pulse of 67, respiratory rate of 16, and oxygen saturation 98% on room air. GENERAL: The patient is alert, in no acute distress. HEENT: Head is normocephalic and atraumatic. Extraocular movements are intact, emesis bag near the patient's face. NECK: Supple. Oral mucosa is slightly dry. HEART: Regular rate and rhythm at the time of exam. No murmurs auscultated. LUNGS: Clear to auscultation bilaterally. No rubs or wheezes. ABDOMEN: Soft, nontender. Positive bowel sounds throughout. EXTREMITIES: Lower extremities with trace pitting edema, bilateral varicose veins. Ulceration is covered with dressing that is intact. INTEGUMENTARY: Skin is covered with heme-crusted excoriations head to toe scattered. No apparent pus from any of them. ORIENTATION: The patient continues to have some flights of fancy, but does know who she is, who I am, where she is at. ASSESSMENT AND PLAN: Symptomatic bradycardia, hypertension, nonpressure ulcer of the left lower extremity secondary to venous stasis, paranoid schizophrenia, psychogenic pruritus. The patient is on antibiotics in the postoperative period. Continued home lisinopril. Wound care as above, other recommendations for postoperative management with pacemaker per Cardiology's recommendations. Once they are ready, would recommend. The patient moving to telemetry. The patient is living in assisted living. We will work with the patient's son on discharge if able to have better continuity of care going home. Job ID: [id number]
--- NOTE | 2019-04-25 18:34 | CCL ---
PACEMAKER INSERTION: 04/25/19 INDICATION: Syncope with six second pause. DESCRIPTION OF PROCEDURE: The patient was brought to the Cardiac Hand Router Operator and the left subclavian area was prepped and draped. She was given Fentanyl 25 mg and versed 1 mg IV for moderate conscious sedation for one hour. 1% Lidocaine was infiltrated. A J-wire was placed into the left subclavian vein. Pacemaker pocket was manufactured using blunt and sharp dissection with electrocautery for hemostasis. An antibiotic solution soaked 4x4 gauze was placed in the subcutaneous pocket. A second J-wire was then placed into the left subclavian vein. Using a 7-[place] peel away sheaths, the ventricular and atrial leads were inserted. The ventricular lead was screwed into the right ventricular apex. The right atrial lead was screwed into the right atrium. RV lead - R-wave 9.25, impedance 608, threshold 0.4 volts. For the right atrial lead, the P-wave was 1.6, impedance 418, threshold 0.6 volts. Both leads were paced at 10 volts without muscle or diaphragmatic stimulation. The tabs on the suture tie-downs were removed and each lead was secured in place with two sutures of 0 silk. The subcutaneous pocket was irrigated with copious amounts of antibiotic solution after the 4 x 4 gauze was removed. The leads were attached to the pacemaker generator and this was placed into the pocket and secured in place with one suture of 0 silk. The incision was then closed using two layers of running 3-0 Vicryl, one layer of running 4-0 Vicryl. Dermabond was placed on the incision. The patient tolerated the procedure well. EN
[2019-04-25] MEDS: Cipro 250 MG TAB PO SCH (21:04)
[2019-04-26] MEDS: Cipro 250 MG TAB PO SCH ×2 (05:14→20:34)
[2019-04-26] MEDS: Lisinopril 20 MG TAB PO SCH (08:54)
[2019-04-26] MEDS: OLANZapine 5 MG TAB PO SCH (21:49)
--- NOTE | 2019-04-27 02:45 | PRG ---
DATE OF SERVICE: 04/26/2019 HISTORY OF PRESENT ILLNESS: The patient has become more and more confused following her narcotic pain medication and anesthesia in a postoperative state and also have a history of paranoid schizophrenia. No reports by nursing staff that she is becoming belligerent or violent. I reviewed last hospitalization, no mention of any medications recommended by [facility] during last mental break. No changes in medication per cardiology report. The patient continued on ciprofloxacin for wound. OBJECTIVE: VITAL SIGNS: Temperature 99.8, oxygen saturation 97% on room air, blood pressure 132/67. Physical exam GENERAL: The patient is alert, in no acute distress. HEENT: Head is normocephalic and atraumatic. Extraocular movements are intact. Oral mucosa is moist. NECK: Supple. HEART: Regular rate and rhythm at the time of exam. No murmurs auscultated. LUNGS: Clear to auscultation bilaterally. No rubs or wheezes. ABDOMEN: Soft, nontender. Positive bowel sounds throughout. EXTREMITIES: Lower extremities with pitting edema, trace right lower extremity with wound dressing intact, non-pressure ulcer. Varicose veins present throughout lower extremities bilaterally. NEUROLOGIC: The patient is alert and oriented x2. The patient with flights of fancy and easily distractible thought pattern, flat affect otherwise. Integumentary: Heme crusted lesions covering all reachable places of body ASSESSMENT AND PLAN: Left bundle-branch block, symptomatic bradycardia and asystole, resolved, status post pacemaker placement. Right lower extremity, non-pressure ulcer secondary to venous stasis. Wound Care has continued ciprofloxacin as above. The patient is participating with cardiac rehab program. This morning, the patient ambulated 90 feet. We will continue to follow cardiology's recommendations with discharge planning. The patient lives in assisted living and has home health wound care at this point in time. Job ID: [id number] [facility]
[2019-04-27] MEDS: Cipro 250 MG TAB PO SCH ×2 (06:18→19:21)
[2019-04-27] MEDS: Lisinopril 20 MG TAB PO SCH (07:41)
[2019-04-27 15:02] LABS: Bilirubin Negative (Negative); Blood, Urine Negative (Negative); Clarity Clear (Clear); Glucose, Urine (Dipstick) Normal (Negative); Leukocyte 250 Leu/uL (Negative); Nitrite Negative (Negative); Protein, Urine (Dipstick) Negative (Neg-Trace); RBC/HPF 0-3 HPF (0-3); Squamous Epithelial 0-3 HPF (0-3); Urobilinogen Normal mg/dL (Less than 2)
[2019-04-27 15:06] LABS: Bacteria/HPF 1+ HPF (None Seen)
[2019-04-27 15:08] LABS: Urine Culture Reflex Yes Yes
--- NOTE | 2019-04-27 17:18 | PRG ---
DATE OF SERVICE: 04/27/2019 HISTORY OF PRESENT ILLNESS: The patient continues to struggle with ambulation, reporting dizziness, only walked 30 feet today. From cardiology standpoint, stated that the patient is ready for discharge, did recommend that she complete ciprofloxacin course in a postoperative state, given her lower extremity wound. The patient is currently having home health wound care, however, does not have physical therapy. Do not feel comfortable sending the patient out the door, ambulating so poorly. Checked her urine status and the patient has abnormal urinalysis despite being on ciprofloxacin for greater than 48 hours. Noted penicillin allergy, we feel Rocephin may be a good addition for cross coverage of additional UTI elements. The patient was started on Zyprexa for her delirium, which thought largely to be secondary to her paranoid schizophrenia, however, may be secondary to the patient's possible UTI suspected at this point. OBJECTIVE: VITAL SIGNS: Temperature of 98.1, pulse of 63, respiratory rate of 16, oxygen saturation 96% on room air, blood pressure 141/62. GENERAL: The patient is alert, in no acute distress. HEENT: Head is normocephalic and atraumatic. Extraocular movements are intact. Mucosa is slightly dry. NECK: Supple. HEART: Is regular rate and rhythm at time of exam. No murmurs on auscultation. LUNGS: Clear to auscultation bilaterally. No rubs or wheezes. ABDOMEN: Soft and nontender with positive bowel sounds throughout. EXTREMITIES: Lower extremities with trace pitting edema. Right lower extremity, medial aspect with dressing intact for ulcer from Wound Care. INTEGUMENTARY: The patient with heme-crusted lesions head-to-toe and all reachable areas secondary to excoriations. Left chest wall wound is healing appropriately. No extending erythema or pallor. ASSESSMENT AND PLAN: Symptomatic bradycardia, status post pacemaker. Hypertension, continued on lisinopril. Non-pressure ulcer present on admission, continue Wound Care Services, currently on ciprofloxacin. Suspected urinary tract infection, indeterminate but may have been present on admission. The patient did not have prolonged Golden during hospitalization, do not think secondary to that. Started on Rocephin as above. Follow up on urine culture results. Continue Zyprexa at this point in time for paranoid schizophrenia. Continuing wound care as above. If the patient is unable to ambulate greater than 200 feet, we will look to potential SNF placement for deconditioning secondary to infection. Continue wound care and medication management. If the patient increases her ambulation with current medications and antibiotics, we would look to seek for home health physical therapy, consult Case Management for this. The patient lives in assisted living at baseline. Job ID: [id number]
[2019-04-27] MEDS: OLANZapine 5 MG TAB PO SCH (19:59)
[2019-04-28 04:25] LABS: #Eosinphils 0.1 thou/uL (0.0-0.7); #Lymphocytes 1.6 thou/uL (1.20-3.40); #Monocytes 0.7 thou/uL (0.11-0.59); #Neutrophils 3.9 thou/uL (1.40-6.50); %Basophils 0.7 % (0.0-1.0); %Eosinophils 1.8 % (0.0-10.0); %Lymphocytes 25.6 % (21.0-51.0); %Monocytes 11.4 % (0.0-10.0); %Neutrophils 60.5 % (42.0-75.0); Hemoglobin 12.4 g/dL (12.0-16.0); Mean Corpuscular HGB CONC 32.9 g/dL (32.0-36.0); Mean Corpuscular Hemoglobin 29.4 pg (27.0-31.0); Mean Corpuscular Volume 89.3 fL (78.0-98.0); Mean Platelet Volume 9.7 fL (7.4-10.4); Platelet Count 89 thou/uL (130-400); RBC Distribution Width 12.4 % (11.5-14.5); Red Blood Cell (RBC) Count 4.22 mill/uL (4.20-5.40); White Blood Cell (WBC) Count 6.4 thou/uL (4.8-10.8)
[2019-04-28 04:46] LABS: ALT (SGPT) 8 U/L (8-55); AST (SGOT) 14 U/L (5-34); Albumin 3.5 g/dL (3.4-4.8); Alkaline Phosphatase 49 U/L (40-150); Anion Gap 6 mmol/L (10-20); BUN (Urea Nitrogen) 14 mg/dL (9.8-20.1); Bilirubin, Total 0.8 mg/dL (0.2-1.2); Calc. Creatinine Clearance 59 mL/min (70-130); Carbon Dioxide 30 mmol/L (23-31); Chloride 106 mmol/L (98-107); Estimated GFR-MDRD 60; Globulin 2.3 g/dL (2.4-3.5); Glucose 91 mg/dL (83-110); Potassium 3.8 mmol/L (3.5-5.1); Protein, Total 5.8 g/dL (6.0-8.3); Sodium 138 mmol/L (136-145)
[2019-04-28] MEDS: Cipro 250 MG TAB PO SCH ×2 (05:42→19:55)
[2019-04-28] MEDS: Lisinopril 20 MG TAB PO SCH (09:16)
[2019-04-28] MEDS: cefTRIAXone\\ROCEPHIN 1 GM in Sodium Chloride 0.9% 100 ML IVPB SCH (16:57)
--- NOTE | 2019-04-28 18:09 | PRG ---
DATE OF SERVICE: 04/28/2019 HISTORY OF PRESENT ILLNESS: The patient states that her right lower extremity is hurting more today, is hampering her efforts for ambulation, only ambulated 30/ 40 feet in 2 separate increments with Physical Therapy evaluation, recommending SNF. Case Management order placed. The patient verbalized understanding regarding continuation of getting stronger. The patient continues to be at baseline paranoid schizophrenia, is tolerating olanzapine. Temperature of 98.4, pulse of 63, respiratory rate of 18, oxygen saturation 96% on room air, and blood pressure 165/74. White blood count of 6.4, hemoglobin of 12.4, and platelet count of 89. Sodium of 138, potassium of 3.8, creatinine of 0.8, albumin of 3.5, triglycerides of 57, cholesterol total 175, LDL of 100, and HDL of 64. Urine culture negative at 24 hours growth. PHYSICAL EXAMINATION: GENERAL: The patient is alert, in no acute distress. HEENT: Head is normocephalic and atraumatic. Extraocular movements are intact. Oral mucosa is moist. NECK: Supple. HEART: Regular rate and rhythm at the time of exam. No murmurs auscultated. LUNGS: Clear to auscultation bilaterally. No rubs or wheezes. ABDOMEN: Soft, nontender. Positive bowel sounds throughout. EXTREMITIES: Lower extremities with pitting edema, trace right lower extremity with wound dressing intact, non-pressure ulcer. Varicose veins present throughout lower extremities bilaterally. NEUROLOGIC: The patient is alert and oriented x2. The patient with flights of fancy and easily distractible thought pattern, flat affect otherwise. ASSESSMENT AND PLAN: 1. Symptomatic bradycardia, status post pacemaker. Cardiology signed off. The patient slow to progress following, looking a SNF placement as above per Case Management referral. 2. Hypertension. The patient controlled on lisinopril at a baseline. 3. Wound Care continuing to follow along for venous stasis, non-pressure ulcer present on admission. 4. Paranoid schizophrenia. Continuing olanzapine at bedtime. 5. Psychogenic pruritus. The patient is covered from head-to-toe with periodic heme-crusted lesions. These are at baseline. Do not appear to have any active infection. 6. We will put stop on Rocephin at 72 hours or until urine culture negative at 48 hours. We will continue Cipro coverage from postoperative recommendation by Dr. Donahue for wound and surgery site coverage. 7. Thrombocytopenia. No active bleeding site. Mild trend down after surgery. We will continue to trend periodically and will follow up on an outpatient basis. No active bleeding. Continuing physical therapy for mobilization. Initiated gabapentin twice daily to see if it helps with lower extremity complications of neuropathy that may help the patient to ambulate. Job ID: [id number] [facility]
[2019-04-28] MEDS: OLANZapine 5 MG TAB PO SCH (19:54)
[2019-04-28] MEDS: Gabapentin 300 MG CAP PO SCH (19:55)
[2019-04-29] MEDS: cefTRIAXone\\ROCEPHIN 1 GM in Sodium Chloride 0.9% 100 ML IVPB SCH ×2 (04:58→17:54)
[2019-04-29] MEDS: Cipro 250 MG TAB PO SCH ×2 (04:58→21:39)
[2019-04-29] MEDS: Gabapentin 300 MG CAP PO SCH ×2 (09:38→21:39)
[2019-04-29] MEDS: Lisinopril 20 MG TAB PO SCH (09:38)
--- NOTE | 2019-04-29 12:14 | PRG ---
DATE OF SERVICE: 04/29/2019 PRIMARY CARE PHYSICIAN: Dr. Jareht Vaca. SUBJECTIVE: The patient denies chest pain or shortness of breath. She denies palpitations. She complains of a catheter in place. She continues to have limited ability with ambulation. Physical Therapy is recommending fdc unit. States their appetite is good. OBJECTIVE: VITAL SIGNS: Temperature 98.2, pulse 74, respirations 12, blood pressure 140/63, and pulse ox is 95% on room air. GENERAL: She is awake and alert. Speech is clear. HEENT: Mucosa is moist. NECK: Supple. HEART: Regular rate and rhythm. LUNGS: Clear. ABDOMEN: Soft. EXTREMITIES: Have no edema. Dressing on right medial malleolus. LABORATORY DATA: Reviewed, stable. ASSESSMENT AND PLAN: 1. This is an 83-year-old female patient admitted with symptomatic bradycardia. She is now status post pacemaker and doing well. Cardiology has signed off. 2. Hypertension, is stable, on lisinopril. 3. Wound care for venous stasis and non-pressure ulcer. I will continue wound care. 4. Paranoid schizophrenia, stable on her medications. 5. Antibiotic therapy will continue. Awaiting results of 48-hour urine culture. 6. Disposition: Awaiting Case Management for fdc facility placement. Job ID: [id number]
--- NOTE | 2019-04-29 15:36 | EKG ---
Test Reason : Blood Pressure : / mmHG Vent. Rate : 059 BPM Atrial Rate : 059 BPM P-R Int : 188 ms QRS Dur : 138 ms QT Int : 448 ms P-R-T Axes : 004 -18 065 degrees QTc Int : 443 ms Sinus bradycardia Left bundle branch block Abnormal ECG Confirmed by JAGRUTI TINOCO ([id number]), film or videotape editor CHRISTIANO MCKEON ([id number]) on 04/29/2019 3:35:43 PM Referred By: Confirmed By:JAGRUTI TINOCO
--- NOTE | 2019-04-29 15:36 | EKG ---
Test Reason : Blood Pressure : / mmHG Vent. Rate : 060 BPM Atrial Rate : 060 BPM P-R Int : 170 ms QRS Dur : 146 ms QT Int : 452 ms P-R-T Axes : 017 005 055 degrees QTc Int : 452 ms Sinus rhythm with Premature atrial complexes Left bundle branch block Abnormal ECG Confirmed by JAGRUTI TINOCO ([id number]), assignment desk editor CHRISTIANO MCKEON ([id number]) on 04/29/2019 3:35:45 PM Referred By: Confirmed By:JAGRUTI TINOCO
[2019-04-29] MEDS: OLANZapine 5 MG TAB PO SCH (21:39)
[2019-04-30] MEDS: Cipro 250 MG TAB PO SCH ×2 (05:37→20:49)
[2019-04-30] MEDS: Lisinopril 20 MG TAB PO SCH (08:46)
[2019-04-30] MEDS: Gabapentin 300 MG CAP PO SCH ×2 (08:46→20:49)
--- NOTE | 2019-04-30 10:18 | PRG ---
DATE OF SERVICE: 04/30/2019 SUBJECTIVE: The patient denies chest pain or shortness of breath. No palpitations. She continues to complain of her urinary catheter. She is ambulating with therapy, but continues to be weak, increased fall risk. Appetite has been okay. OBJECTIVE: VITAL SIGNS: Temperature 98.0, pulse of 75 and regular, respirations 20, blood pressure 110/52, and pulse ox is 94% on room air. GENERAL: She is awake and alert. No acute distress. Speech is clear. NECK: Supple. HEART: Regular rate and rhythm. CHEST: Chest wall with pacemaker placement. Wound is intact. No sign of infection. LUNGS: Clear bilaterally. ABDOMEN: Soft. EXTREMITIES: With dressing on right medial malleoli. No swelling. LABORATORY DATA: Reviewed. ASSESSMENT AND PLAN: This is an 83-year-old female patient of Dr. Jareth Vaca, admitted with symptomatic bradycardia, now status post pacemaker placement. 1. Status post pacemaker placement, doing well. Cardiology has signed off. We will likely be able to move off the telemetry at this point. 2. Hypertension is stable, on lisinopril. 3. Venous stasis and non pressure ulcer. Continue wound care. 4. Paranoid schizophrenia. We will continue her medications. 5. Disposition, awaiting Case Management for long-term facility placement. The patient is doing well at this point. Job ID: [id number]
[2019-04-30 11:58] LABS: #Basophils 0.1 thou/uL (0.0-0.2); #Eosinphils 0.2 thou/uL (0.0-0.7); #Lymphocytes 1.6 thou/uL (1.20-3.40); #Monocytes 0.9 thou/uL (0.11-0.59); #Neutrophils 5.1 thou/uL (1.40-6.50); %Basophils 0.8 % (0.0-1.0); %Lymphocytes 20.2 % (21.0-51.0); %Monocytes 11.7 % (0.0-10.0); %Neutrophils 65.3 % (42.0-75.0); Hemoglobin 13.9 g/dL (12.0-16.0); Mean Corpuscular Hemoglobin 29.4 pg (27.0-31.0); Mean Corpuscular Volume 89.1 fL (78.0-98.0); Mean Platelet Volume 9.4 fL (7.4-10.4); Platelet Count 94 thou/uL (130-400); RBC Distribution Width 12.5 % (11.5-14.5); Red Blood Cell (RBC) Count 4.72 mill/uL (4.20-5.40); White Blood Cell (WBC) Count 7.7 thou/uL (4.8-10.8)
[2019-04-30] MEDS: OLANZapine 5 MG TAB PO SCH (20:49)
[2019-05-01] MEDS: Cipro 250 MG TAB PO SCH ×2 (05:26→19:46)
[2019-05-01] MEDS: Lisinopril 20 MG TAB PO SCH (08:41)
[2019-05-01] MEDS: Gabapentin 300 MG CAP PO SCH ×2 (08:41→19:46)
[2019-05-01] MEDS: OLANZapine 5 MG TAB PO SCH (19:46)
--- NOTE | 2019-05-02 02:38 | PRG ---
DATE OF SERVICE: 05/01/2019 HISTORY OF PRESENT ILLNESS: The patient is awaiting placement. No apparent interval changes over the weekend, deescalate her antibiotics. No reported fevers. The patient remains at baseline, paranoid schizophrenia Wound Care continue to work on the patient's right lower extremity. PHYSICAL EXAMINATION: VITAL SIGNS: Temperature of 98.2, pulse of 74, respiratory rate of 18, oxygen saturation 95%, and blood pressure 109/69. ASSESSMENT/PLAN: Continued deconditioning, placement as above for physical therapy. The patient is not currently appropriate for independent living. The patient appears to be doing well on postoperative period from pacemaker placement. Continue wound care from non-pressure ulcer venous statis present on admission. Continue on gabapentin and olanzapine for schizophrenia and neuropathy. Job ID: [id number]
[2019-05-02] MEDS: Cipro 250 MG TAB PO SCH ×2 (05:47→20:51)
[2019-05-02] MEDS: Lisinopril 20 MG TAB PO SCH (09:06)
[2019-05-02] MEDS: Gabapentin 300 MG CAP PO SCH ×2 (09:07→20:51)
[2019-05-02 12:51] VITALS: BMI 28.7
[2019-05-02] MEDS: OLANZapine 5 MG TAB PO SCH (20:51)
--- NOTE | 2019-05-02 23:27 | PRG ---
DATE OF SERVICE: 05/02/2019 HISTORY OF PRESENT ILLNESS: The patient is awaiting placement, continues to remain in baseline confusion regarding her paranoid schizophrenia with flight of ideas and pain-free, verbalized understanding regarding pending insurance approval for SNF/Assisted Living transfer. Exam is unchanged. Vital signs; temperature of 98.4, respiratory rate of 18, oxygen saturation 97% on room air, blood pressure 134/82. The patient still ambulating less than 200 feet with Physical Therapy. We will follow up with Case Management tomorrow. The patient has completed antibiotics. Wound Care still working with right lower extremity for non-pressure ulcer present on admission. We will discharge hopefully tomorrow if able. Job ID: [id number]
[2019-05-03] MEDS: Gabapentin 300 MG CAP PO SCH (09:34)
[2019-05-03] MEDS: Lisinopril 20 MG TAB PO SCH (09:34)
[2019-05-03 14:09] VITALS: BP 123/68; TEMP 98.6
== END 2019-05-03 14:26 | DRG 243 ==
LOC: ERS 12:30 → CCU 16:00 → 2NO 04-25 22:14 → T4-A 04-30 12:19
PROVIDERS: ADMIT Family Medicine; ATTEND Family Medicine
PROC: 0JH606Z Insertion of Pacemaker, Dual Chamber into Chest Subcutaneous Tissue and Fascia, Open Approach (ICD-10-PCS; principal; 2019-04-25)
PROC: 02HK3JZ Insertion of Pacemaker Lead into Right Ventricle, Percutaneous Approach (ICD-10-PCS; 2019-04-25)
PROC: 02H63JZ Insertion of Pacemaker Lead into Right Atrium, Percutaneous Approach (ICD-10-PCS; 2019-04-25)
DX: I45.5 Other specified heart block (principal); F20.0 Paranoid schizophrenia; I44.7 Left bundle-branch block, unspecified; I10 Essential (primary) hypertension; I87.8 Other specified disorders of veins; E78.5 Hyperlipidemia, unspecified; F60.3 Borderline personality disorder; F60.4 Histrionic personality disorder; L97.519 Non-pressure chronic ulcer of other part of right foot with unspecified severity; F45.8 Other somatoform disorders; D69.6 Thrombocytopenia, unspecified; Z88.0 Allergy status to penicillin; Z90.49 Acquired absence of other specified parts of digestive tract; Z79.899 Other long term (current) drug therapy
CPT/HCPCS: 33208; 36415; 36416; 71045; 80048; 80053; 80061; 81001; 84484; 85025; 87086; 93005; 93306; 93798; 94760; 96374; 96376; 99152; 99153; C1785; C1898; J0461; J0696; J1250; J1956; J2001; J2060; J2250; J2270; J2405; J3010; J3370; J3490

== ENCOUNTER 2019-05-29 09:52 | Outpatient (CLI) | payer MEDICARE ==
--- NOTE | 2019-05-29 15:32 | HP ---
HISTORY OF PRESENT ILLNESS: Ms. Christal Bobo is a very pleasant 83-year-old accompanied by her son, who presents to the Wound Center for evaluation of a venous ulceration of the right medial lower leg. The patient was admitted to [facility] on 04/24/2019 for syncope. The patient was discharged to [facility], but has now returned to [facility]. The patient's son states that Ms. Bobo was receiving dressing changes with the assistance of Home Health prior to her admission to [facility]. He states that she will be receiving assistance by Home Health for her dressing changes once again. The patient is also apparently receiving physical therapy through her home health agency. The patient's son states that Ms. Bobo will be undergoing venous duplex at [facility]. The patient is followed by Dr. Donovan Donahue. PAST MEDICAL HISTORY: 1. Nephrolithiasis. 2. Hypertension. 3. Polymyalgia. 4. History of skin carcinoma. 5. Arthritis. PAST SURGICAL HISTORY: 1. Cholecystectomy. 2. Hysterectomy/bilateral salpingo-oophorectomy. 3. Pacemaker placement. 4. Bilateral cataract surgery. MEDICATIONS: 1. Gabapentin. 2. Hydroxyzine as needed. 3. Lisinopril. 4. Multivitamin. 5. Olanzapine. 6. Vitamin C. 7. Zinc. ALLERGIES: PENICILLIN. SOCIAL HISTORY: Negative for tobacco or EtOH use. FAMILY HISTORY: Family history is unknown. PHYSICAL EXAMINATION: VITAL SIGNS: Temperature 97.5, pulse 80, respirations 19, and blood pressure 182/75. GENERAL: An 83-year-old female, sitting on stretcher in examination room, in no acute distress. HEENT: Normocephalic, atraumatic. NECK: No nuchal rigidity. CHEST: Clear to auscultation. CARDIOVASCULAR: Regular rate and rhythm. ABDOMEN: Soft. EXTREMITIES: An ulceration of the right medial lower leg is present, which measures approximately 1.0 x 1.4 cm. Granulation tissue is present within the wound margins. No purulent drainage is associated with the wound. Erythema of the skin surrounding the wound is present, which appears to be secondary to stasis changes as opposed to an infectious process. No maceration of the skin of the periwound is noted. A dorsalis pedis pulse is palpable on the right. [id number] edema of the right foot and lower leg is present on exam today. ASSESSMENT AND PLAN: 1. 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 Medihoney alginate followed by non-bordered foam and 3M Coban 2 Layer Compression System will be applied to the ulceration today. Arrangements will be made for the preceding dressing changes to be performed 2 times per week after cleansing and irrigation again with the assistance of Home Health. No antibiotics will be prescribed today based upon the appearance of the wound. I will see Ms. Bobo again in 2 to 4 weeks. The patient's son understands and is in agreement with the preceding treatment plan. 2. Nephrolithiasis. 3. Hypertension. 4. Polymyalgia. 5. Skin carcinoma. 6. Arthritis. Job ID: [id number]
[2019-05-29] MEDS ORDERED: Sodium Chloride 0.9% 15 ML NEB ONE (18:00)
== END 2019-05-29 09:53 | disposition home or self-care (01) ==
LOC: WCC 09:52
PROVIDERS: ATTEND Family Medicine
DX: L97.919 Non-pressure chronic ulcer of unspecified part of right lower leg with unspecified severity (principal)
CPT/HCPCS: 97139; 97602; G0463; 99203; A4218

== ENCOUNTER 2019-06-19 13:44 | Outpatient (CLI) | payer MEDICARE ==
--- NOTE | 2019-06-19 10:21 | PRG ---
DATE OF SERVICE: 06/19/2019 SUBJECTIVE: Ms. Christal Bobo is a very pleasant 83-year-old, accompanied by her son, who presents to the Wound Center for evaluation of a venous ulceration of the right medial lower leg. The patient was admitted to [facility] on 04/24/2019 for syncope. The patient was discharged to [facility], but has now returned to [facility]. The patient's son previously stated that Ms. Bobo had been receiving dressing changes with the assistance of home health prior to her admission to [facility]. He states that she is now receiving assistance by home health with her dressing changes once again. Again, the patient's son states that Ms. Bobo will be undergoing venous duplex at [facility]. The patient is followed by Dr. Donovan Donahue. The patient was unable to tolerate application of the 3M Coban 2 Layer Compression System for her right medial ankle wound. Specifically, the patient removes the dressing on her own. OBJECTIVE: VITAL SIGNS: Temperature 97.6, pulse 82, respirations 18, blood pressure 179/76. EXTREMITIES: An ulceration of the right medial lower leg is present, which measures approximately 1.3 x 0.9 cm. The dimensions of the wound at the time of the patient's last visit were approximately 1.0 x 1.4 cm. Granulation tissue is present within the wound margins. No purulent drainage is associated with the wound. Erythema of the skin surrounding the wound is again present, which appears to be secondary to stasis changes or irritation from wound exudate as opposed to an infectious process. No maceration of the skin of the periwound is noted. A dorsalis pedis pulse is palpable on the right. No significant edema of the right foot or lower leg is present on exam today. ASSESSMENT AND PLAN: 1. 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 Medihoney Alginate, followed by Allevyn or Mepilex Border are to be utilized at the time of dressing changes 2 to 3 times per week after cleansing and irrigation by home health. As stated above, the patient was unable to tolerate application of the 3M Coban 2 Layer Compression System removing the compression wrap shortly after its application. The patient's medical history significant for schizophrenia. I will see Ms. Bobo after she has undergone venous duplex at [facility]. 2. Nephrolithiasis. 3. Hypertension. 4. Polymyalgia. 5. Skin carcinoma. 6. Arthritis. Job ID: [id number]
[~2019-06-19 13:44] MED LIST: Lidocaine 2% 11 ML SYR ONE; Sodium Chloride 0.9% 15 ML NEB ONE
== END 2019-06-19 13:45 | disposition home or self-care (01) ==
LOC: WCC 13:44
PROVIDERS: ATTEND Family Medicine
DX: I83.218 Varicose veins of right lower extremity with both ulcer of other part of lower extremity and inflammation (principal); L97.819 Non-pressure chronic ulcer of other part of right lower leg with unspecified severity; C44.90 Unspecified malignant neoplasm of skin, unspecified; N20.0 Calculus of kidney; I10 Essential (primary) hypertension; M35.3 Polymyalgia rheumatica; M19.90 Unspecified osteoarthritis, unspecified site
CPT/HCPCS: A4218

== ENCOUNTER 2019-08-02 12:00 | Outpatient (CLI) | payer MEDICARE ==
--- NOTE | 2019-08-02 16:59 | PRG ---
DATE OF SERVICE: 08/02/2019 HISTORY: Ms. Christal Bobo is a very pleasant 83-year-old, accompanied by her son, who presents [facility] for evaluation of a venous ulceration of the right medial lower leg. Since the patient's last visit, Ms. Bobo's son states, the patient has undergone venous ablation on the right by Dr. Donahue. The patient continues to receive dressing changes with the assistance of Home Health. Ms. Bobo has no complaints today. She denies any fever or chills. PHYSICAL EXAMINATION: VITAL SIGNS: Temperature 97.6, pulse 95, respirations 18, blood pressure 152/79. EXTREMITIES: An ulceration of the right medial lower leg is present, which measures approximately 1.5 x 1.0 cm. Granulation tissue is present within the wound margins. No purulent drainage is associated with the wound. No cellulitis of the right lower leg is appreciated. No significant edema of the right foot or lower leg is present on exam today. ASSESSMENT AND PLAN: 1. 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 As stated above, the patient has undergone venous ablation on the right by Dr. Donovan Donahue since her last visit. The patient's son states that the ulceration has significantly improved in its appearance since the patient underwent venous ablation. Medihoney alginate followed by Allevyn or Mepilex border will be continued 3 times per week after cleansing and irrigation with the assistance of Home Health. The patient is unable to tolerate application of the 3M Coban 2 Layer Compression System, removing the compression wrap shortly after its application. The patient's medical history is significant for schizophrenia. I have asked the patient's son to schedule an appointment for Ms. Bobo in the [facility] for 4 weeks from today. The patient's son states that he understands and is in agreement with the preceding treatment plan. 2. Nephrolithiasis. 3. Hypertension. 4. Polymyalgia. 5. Skin carcinoma. 6. Arthritis. Job ID: [id number]
[2019-08-02] MEDS ORDERED: Sodium Chloride 0.9% 15 ML NEB ONE (17:04)
== END 2019-08-02 12:01 | disposition home or self-care (01) ==
LOC: WCC 12:00
PROVIDERS: ATTEND Family Medicine
DX: I83.218 Varicose veins of right lower extremity with both ulcer of other part of lower extremity and inflammation (principal); L97.919 Non-pressure chronic ulcer of unspecified part of right lower leg with unspecified severity; N20.0 Calculus of kidney; I10 Essential (primary) hypertension; M35.3 Polymyalgia rheumatica; C44.90 Unspecified malignant neoplasm of skin, unspecified; M19.90 Unspecified osteoarthritis, unspecified site
CPT/HCPCS: A4218